=== PATIENT | male | born 1945 | race Caucasian/White ===

== ENCOUNTER → 2020-11-04 | Outpatient (CLI) | payer MEDICARE, BC | LOC: M.MRI 16:02 | PROVIDERS: ATTEND Orthopaedic Surgery | DX: S83.242A Other tear of medial meniscus, current injury, left knee, initial encounter (principal); M17.12 Unilateral primary osteoarthritis, left knee; M25.762 Osteophyte, left knee; X58.XXXA Exposure to other specified factors, initial encounter; Y93.89 Activity, other specified; Y92.89 Other specified places as the place of occurrence of the external cause; Y99.8 Other external cause status ==

== ENCOUNTER → 2020-12-22 | Outpatient (CLI) | payer MEDICARE, BC ==
[~2020-12-22] MED LIST: ALPHAGAN P5 ML RT. EYE; ASA81BEC PO; BREO ELLIPTA 11 EACH INH; LOSARTAN POTASS50 MG PO; OMEPRAZOLE 20 M20 M1 PO; PROVENTIL HFA6.7 G1 INH; SINGULAIR 10 MG10 M1 PO; TRAMADOL 50 MG50 MG PO; VYZULTA5 ML EA. EYE; ZOCOR20 MG PO
[2020-12-22 10:13] LABS: ABSOLUTE BASOPHILS 0.1 thou/uL (0.0-0.2); ABSOLUTE EOSINOPHILS 0.2 thou/uL (0.0-0.7); ABSOLUTE LYMPHOCYTES 1.7 thou/uL (0.8-5.3); ABSOLUTE MONOCYTES 0.4 thou/uL (0.0-1.2); ABSOLUTE NEUTROPHILS 4.5 thou/uL (1.6-8.1); BASOPHILS 0.8 %; EOSINOPHILS 2.7 %; HEMATOCRIT 40.4 % (42.0-52.0); HEMOGLOBIN 13.4 gm/dL (14.0-18.0); LYMPHOCYTES 25.1 %; MCH 30.5 pg (26.0-34.0); MCHC 33.3 g/dL (28.0-37.0); MCV 91.6 fL (80.0-100.0); MONOCYTES 6.3 %; MPV 8.2 fl. (7.2-11.1); NUCLEATED RBCS 0 /100WBC; PLATELET COUNT* 211 thou/uL (150-400); POLYS 65.1 %; RBC 4.41 mil/uL (4.50-6.00); RDW-CV 15.1 % (10.5-14.5); WBC 6.9 thou/uL (4.0-11.0)
[2020-12-22 10:22] LABS: URINE BILIRUBIN NEGATIVE (Negative); URINE BLOOD NEGATIVE (Negative); URINE CLARITY CLEAR; URINE COLOR YELLOW; URINE GLUCOSE-RANDOM NEGATIVE (Negative); URINE KETONES NEGATIVE (Negative); URINE LEUKOCYTES-REFLEX NEGATIVE (Negative); URINE NITRITE-REFLEX NEGATIVE (Negative); URINE PROTEIN TRACE (Negative); URINE SPECIFIC GRAVITY 1.025 (1.005-1.030); URINE UROBILINOGEN 0.2 E.U./dl (0.2-1.0)
[2020-12-22 10:32] LABS: PROTIME 10.7 Seconds (9.20-11.50)
[2020-12-22 10:36] LABS: CREATININE 1.7 mg/dL (0.6-1.3); POTASSIUM 4.8 mmol/L (3.5-5.1); TOTAL BILIRUBIN 0.4 mg/dL (<0.1-1.0); TOTAL PROTEIN 7.5 g/dL (6.4-8.2)
--- NOTE | 2020-12-22 11:48 | EKG ---
[place] [address] ELECTROCARDIOGRAM REPORT Name: RICKY SHEPHERD Room: [facility]#: [id number] Admission: 12/22/20 Attend Phys: Bijan Canada, Discharge: Date of : 47 Date of Service: 12/22/20 1024 Report #: [id number] THIS REPORT FOR: //name// [facility] Test Date: 2020-12-22 Test Time: 10:24:23 Pat Name: RICKY SHEPHERD Department: Room: Gender: Golf Coach: : 1945 Requested By: Bijan Canada Order Number: [id number] Reading MD: Parish Ellis Measurements Intervals [place] Rate: 75 P: 43 WI: 192 QRS: 48 QRSD: 86 T: 65 QT: 383 QTc: 428 Interpretive Statements Sinus rhythm Atrial premature complexes No previous ECG available for comparison Electronically Signed On 12-22-2020 11:48:13 CDT by Parish Ellis [email or web address] <ELECTRONICALLY SIGNED> By: Parish Ellis MD, [facility] 12/22/20 1148 1024 1024 Parish Ellis MD, FACC /EPI
== END ==
LOC: M.LAB 09:49
PROVIDERS: ATTEND Orthopaedic Surgery
DX: Z01.818 Encounter for other preprocedural examination (principal); M17.12 Unilateral primary osteoarthritis, left knee

== ENCOUNTER 2020-12-29 07:00 | Inpatient (IN) | payer MEDICARE, BC ==
[~2020-12-29] VITALS: Ht 177.8 cm; Wt 108.0 kg
[2020-12-29 08:00] VITALS: BP 139/89
[2020-12-29 16:11] VITALS: BP 127/67
[2020-12-30 00:31] VITALS: BP 136/67
[2020-12-30 05:13] LABS: HEMOGLOBIN 11.3 gm/dL (14.0-18.0)
[2020-12-30 05:27] VITALS: BP 127/70
[2020-12-30] MEDS ORDERED: HYDROCODON-ACE1 EAC7 PO (08:09)
[2020-12-30] MEDS ORDERED: XARELTO10 MG PO (08:09)
[2020-12-30 08:35] VITALS: BP 148/76
[2020-12-30 11:22] VITALS: BP 135/70
[2020-12-30 13:06] VITALS: BP 135/70
[2020-12-30 15:22] VITALS: BP 129/72
[2020-12-31] VITALS: BP 150/77
[2020-12-31 04:00] VITALS: BP 144/95; BP 146/72
[2020-12-31 04:43] LABS: HEMATOCRIT 32.5 % (42.0-52.0); HEMOGLOBIN 10.9 gm/dL (14.0-18.0)
[2020-12-31 08:00] VITALS: BP 139/62
[2020-12-31 15:21] VITALS: BP 135/61
[2020-12-31 23:46] VITALS: BP 120/67
[2021-01-01 04:22] VITALS: BP 135/73
--- NOTE | 2021-01-01 07:24 | OP ---
[facility] [address] [place] [address] OPERATIVE REPORT Name: RICKY SHEPHERD Room: [address] M.R.#: [id number] Admission: 12/29/20 Attend Phys: Margarita Chen Discharge: Date of : 47 Report #: [id number] THIS REPORT FOR: cc: Carlyle Mi,Bijan Costello II, DO ~ DATE OF SERVICE: 12/29/2020 PREOPERATIVE DIAGNOSIS: Left knee osteoarthritis. POSTOPERATIVE DIAGNOSIS: Left knee osteoarthritis. PROCEDURE: Left total knee arthroplasty. SURGEON: Bijan Canada II, DO GRAIN ELEVATOR SUPERINTENDENT: LORENE Joya ANESTHESIA: General endotracheal. ESTIMATED BLOOD LOSS: 50 mL. ANTIBIOTICS: Ancef preoperatively. DRAINS: Medium Hemovac. COMPLICATIONS: None. CONDITION OF THE PATIENT: Stable to recovery room. IMPLANTS: Listed in operative record and progress note. BRIEF HISTORY: The patient was seen in the preoperative area. Preoperative H and P was performed. Site was marked, questions were answered. Risks and benefits were discussed with the patient in detail about surgery. The patient wished to proceed, assuming all risks. DESCRIPTION OF PROCEDURE: The patient was taken to the operative suite, placed supine on the operative table and given appropriate anesthesia. A well-padded tourniquet was applied to the upper thigh, which was inflated to 300 mmHg after gravity exsanguination. The operative knee was sterilely prepped and draped. Surgery began by midline incision. This was carried down to the subcutaneous tissues. A medial parapatellar arthrotomy was performed and carried down to bone. Patella was then everted and excess soft tissues were removed from around the femur. Femoral cutting block was then applied, checked with drop mikel for [facility] [address] [place] [address] OPERATIVE REPORT Name: RICKY SHEPHERD Room: [address] [facility]#: [id number] Admission: 12/29/20 Attend Phys: Margarita Chen Discharge: Date of : 47 Report #: [id number] rotational alignment, pinned in appropriate position and appropriate cuts were made. A 4-in-1 cutting block was then applied, checked for rotational alignment, pinned in appropriate position and appropriate cuts were made. The tibia was then exposed. Excess meniscus was removed. Retractor was placed on collateral ligaments. The tibial cutting block was then applied, pinned in appropriate position, checked with drop mikel for rotational alignment and slope and appropriate cut was made. Tibial bone was removed. Tibial base plate was then applied, checked for rotational alignment with the drop mikel and pinned in appropriate position. Femur was then applied and box cut was reamed. This was then trialed with appropriate spacer, which showed excellent fit and fill and excellent stability of the knee throughout all range of motion. The patella was then reamed in appropriate fashion and sized to appropriate size. Three peg holes were drilled and knee was then trialed and showed excellent extension and excellent tracking of the patella within the groove. These trials were then removed. The tibia was punched in appropriate fashion. Bone ends were cleansed with Pulsavac irrigation and cement was mixed and applied to final implants. These were then malleted into position and held the knee in extension and compressed to allow cement to cure. After it cured, excess was removed using a [place] and osteotome. Wound was then copiously irrigated and the final spacer was then malleted into position. The tourniquet was deflated. Hemostasis was obtained with electrocautery. Pain cocktail was injected. PRP gel sprayed throughout the internal aspects of the knee. Medium Hemovac drain was applied. Capsule was closed with #2 FiberWire and #1 Vicryl in [id number] fashion. Skin was closed with 2-0 Vicryl and running 3-0 Monocryl. Dermabond and sterile dressing applied. Zaki wrap and PolarCare applied. The patient transported to recovery room in stable condition. Counts were correct throughout the procedure. <ELECTRONICALLY SIGNED> By: Bijan Canada II, DO 01/01/21 0724 [id number] Canada II, DO /nt
[2021-01-01 08:20] VITALS: BP 130/58
[2021-01-01 11:33] VITALS: BP 135/70
[2021-01-01 13:55] VITALS: BP 135/70
[2021-01-01 14:02] VITALS: BP 135/70
[2021-01-01 16:23] VITALS: BP 135/70
== END 2021-01-01 14:45 | disposition home health service (06) | DRG 470 ==
LOC: M.TBA 07:00 → M.ORTHSURG 07:00 → M.PRE 08:26 → M.ORTHSURG 11:52 → M.PRE 12:18 → M.ORTHSURG 01-01 14:45
PROVIDERS: Orthopaedic Surgery; ADMIT Internal Medicine; ATTEND Internal Medicine
PROC: 0SRD0J9 Replacement of Left Knee Joint with Synthetic Substitute, Cemented, Open Approach (ICD-10-PCS; principal; 2020-12-29)
PROC: 3E0T3BZ Introduction of Anesthetic Agent into Peripheral Nerves and Plexi, Percutaneous Approach (ICD-10-PCS; 2020-12-29)
DX: M17.12 Unilateral primary osteoarthritis, left knee (principal); K21.9 Gastro-esophageal reflux disease without esophagitis; J45.909 Unspecified asthma, uncomplicated; I10 Essential (primary) hypertension; G47.33 Obstructive sleep apnea (adult) (pediatric); E11.9 Type 2 diabetes mellitus without complications; Z88.2 Allergy status to sulfonamides; Z79.899 Other long term (current) drug therapy; Z85.528 Personal history of other malignant neoplasm of kidney; Z98.42 Cataract extraction status, left eye; Z98.41 Cataract extraction status, right eye; Z82.49 Family history of ischemic heart disease and other diseases of the circulatory system